=== PATIENT | male | born 1970 | race Caucasian/White ===

== ENCOUNTER 2017-03-19 05:39 | Day surgery (SDC) | payer OTHER ==
[~2017-03-19] VITALS: Ht 190.5 cm; Wt 81.4 kg
[~2017-03-19 05:39] MED LIST: BUPR75 PO; HYDACE5325 PO; LIDO5TP TOP; NAPR500 PO; Naprosyn500 MG PO; Norco 5-325 Ta1 EACH PO; OXYACE5T PO; RXHYD5325 PO; TRAZ50 PO
[2017-03-19] MEDS ORDERED: NITR.4SL SL (06:50)
[2017-03-19 07:18] LABS: BASOPHILS ABSOLUTE AUTO 0.12 K/mm3 (0.00-0.23); BASOPHILS PERCENT AUTO 2 % (0-2); EOSINOPHILS ABSOLUTE AUTO 0.26 K/mm3 (0.00-0.68); EOSINOPHILS PERCENT AUTO 3 % (0-6); Hematocrit 49.3 % (37.0-53.0); Hemoglobin 15.8 g/dL (13.5-17.5); IMMATURE GRAN ABSOLUTE AUTO 0.03 K/mm3 (0.00-0.10); IMMATURE GRAN PERCENT AUTO 0 % (0-1); LYMPHOCYTES ABSOLUTE AUTO 3.36 K/mm3 (0.84-5.20); LYMPHOCYTES PERCENT AUTO 41 % (21-46); MONOCYTES ABSOLUTE AUTO 0.69 K/mm3 (0.16-1.47); MONOCYTES PERCENT AUTO 8 % (4-13); Mean Corpuscular HGB 24.9 pg (26.0-34.0); Mean Corpuscular Volume 78 fL (80-100); Mean Platelet Volume 10.1 fL (9.1-12.4); NEUTROPHILS ABSOLUTE AUTO 3.77 K/mm3 (1.96-9.15); NEUTROPHILS PERCENT AUTO 46 % (41-73); Platelet Count 279 K/mm3 (150-400); RDW Coefficient Variation 13.7 % (11.7-14.2); RDW Standard Deviation 37.9 fL (35.1-46.3); Red Blood Cell Count 6.35 M/mm3 (4.30-5.90); White Blood Cell Count 8.23 K/mm3 (4.00-11.30)
[2017-03-19 08:03] LABS: Anion Gap 8 mmol/L (6-16); Blood Urea Nitrogen 10 mg/dL (8-24); Bun/Creatinine Ratio 10.3 (12.0-20.0); CO2, Blood 28 mmol/L (21-32); Chloride, Blood 104 mmol/L (98-108); Creatinine, Blood 0.97 mg/dL (0.60-1.20); Glomerular Filtration Rate >60 (60-); Glucose, Blood 86 mg/dL (70-99); Potassium, Blood 3.7 mmol/L (3.5-5.5); Sodium, Blood 140 mmol/L (136-145)
[2017-03-20] MEDS ORDERED: Aspir 8181 MG PO (09:08)
[2017-03-20] MEDS ORDERED: TICA90TA PO (09:09)
[2017-03-20] MEDS ORDERED: SIMV40 PO (09:09)
[2017-03-20] MEDS ORDERED: Pepcid 20 mg Ta20 MG PO (09:09)
[2018-01-17] MEDS ORDERED: Neurontin 100100 MG PO (14:31)
[2018-01-17] MEDS ORDERED: Naprosyn500 MG PO (14:31)
== END 2017-03-20 10:53 | disposition home or self-care (01) ==
LOC: MHTC 05:39 → ICUW 09:52 → ICUE 11:19 → ENTRNSPT 11:37 → ICUW 11:38 → MHTC 03-20 10:53
PROVIDERS: Internal Medicine Cardiovascular Disease
PROC: B211YZZ Fluoroscopy of Multiple Coronary Arteries using Other Contrast (ICD-10-PCS; principal; 2017-03-19)
PROC: B241ZZ3 Ultrasonography of Multiple Coronary Arteries, Intravascular (ICD-10-PCS; principal; 2017-03-19)
PROC: 02703EZ Dilation of Coronary Artery, One Artery with Two Intraluminal Devices, Percutaneous Approach (ICD-10-PCS; principal; 2017-03-19)
DX: I25.118 Atherosclerotic heart disease of native coronary artery with other forms of angina pectoris (principal); Z82.49 Family history of ischemic heart disease and other diseases of the circulatory system; Z87.891 Personal history of nicotine dependence
CPT/HCPCS: 36415; 80048; 82565; 85025; 85347; 92920; 92928; 92978; 93454; 99152; 99153; C1725; C1753; C1769; C1876; C1894; J0153; J0461; J1644; J2250; J3010; J7030; Q9967

== ENCOUNTER 2017-03-20 18:14 | Emergency (ER) | payer OTHER ==
[~2017-03-20 18:14] MED LIST changes: +Aspir 8181 MG PO; +NITR.4SL SL; +Pepcid 20 mg Ta20 MG PO; +SIMV40 PO; +TICA90TA PO
[2018-01-17] MEDS ORDERED: Naprosyn500 MG PO (14:31)
[2018-01-17] MEDS ORDERED: Neurontin 100100 MG PO (14:31)
== END 2017-03-20 20:00 | disposition left against medical advice (07) ==
LOC: ER 18:14
DX: Z53.21 Procedure and treatment not carried out due to patient leaving prior to being seen by health care provider (principal)

== ENCOUNTER → 2017-04-25 | Outpatient (CLI) | payer OTHER ==
[~2017-04-25] MED LIST changes: +Neurontin 100100 MG PO
[2017-04-25 10:39] LABS: BASOPHILS ABSOLUTE AUTO 0.12 K/mm3 (0.00-0.23); BASOPHILS PERCENT AUTO 1 % (0-2); EOSINOPHILS ABSOLUTE AUTO 0.35 K/mm3 (0.00-0.68); EOSINOPHILS PERCENT AUTO 4 % (0-6); Hematocrit 46.5 % (37.0-53.0); Hemoglobin 15.3 g/dL (13.5-17.5); IMMATURE GRAN ABSOLUTE AUTO 0.04 K/mm3 (0.00-0.10); IMMATURE GRAN PERCENT AUTO 0 % (0-1); LYMPHOCYTES ABSOLUTE AUTO 3.52 K/mm3 (0.84-5.20); LYMPHOCYTES PERCENT AUTO 38 % (21-46); MONOCYTES ABSOLUTE AUTO 0.62 K/mm3 (0.16-1.47); MONOCYTES PERCENT AUTO 7 % (4-13); Mean Corpuscular HGB 25.5 pg (26.0-34.0); Mean Corpuscular HGB Conc 32.9 g/dL (31.5-36.5); Mean Corpuscular Volume 78 fL (80-100); Mean Platelet Volume 10.1 fL (9.1-12.4); NEUTROPHILS PERCENT AUTO 50 % (41-73); Platelet Count 290 K/mm3 (150-400); RDW Coefficient Variation 14.2 % (11.7-14.2); RDW Standard Deviation 39.5 fL (35.1-46.3); Red Blood Cell Count 5.99 M/mm3 (4.30-5.90); White Blood Cell Count 9.25 K/mm3 (4.00-11.30)
[2017-04-25 10:55] LABS: Alanine Aminotransfer (ALT/SGP 44 U/L (12-78); Albumin, Blood 3.9 g/dL (3.4-5.0); Albumin/Globulin Ratio 1.3 (0.8-1.8); Alk Phos 89 U/L (40-126); Anion Gap 9 mmol/L (6-16); Aspartate Aminotrans (AST/SGOT 20 U/L (12-37); Bilirubin, Total 0.4 mg/dL (0.1-1.0); Blood Urea Nitrogen 7 mg/dL (8-24); CO2, Blood 26 mmol/L (21-32); Calcium, Blood 8.9 mg/dL (8.5-10.1); Chloride, Blood 106 mmol/L (98-108); Creatinine, Blood 1.16 mg/dL (0.60-1.20); Glomerular Filtration Rate >60 (60-); Glucose, Blood 162 mg/dL (70-99); Potassium, Blood 3.6 mmol/L (3.5-5.5); Sodium, Blood 141 mmol/L (136-145); Total Protein, Blood 6.9 g/dL (6.4-8.2)
[2017-04-25 10:56] LABS: Troponin I <0.017 ng/mL (0.000-0.040)
== END | disposition home or self-care (01) ==
LOC: LAB EV 10:35
PROVIDERS: Physician Assistant Surgical
DX: R07.9 Chest pain, unspecified (principal)
CPT/HCPCS: 80053; 84484; 85025

== ENCOUNTER → 2018-12-01 | Outpatient (CLI) | payer OTHER | END | disposition home or self-care (01) | LOC: LAB 17:55 → LAB SHORT 17:55 | DX: I25.10 Atherosclerotic heart disease of native coronary artery without angina pectoris (principal); M79.602 Pain in left arm; Z95.5 Presence of coronary angioplasty implant and graft | CPT/HCPCS: 84484 ==

== ENCOUNTER 2018-12-10 08:41 | Emergency (ER) | payer OTHER | END 2018-12-10 09:24 | disposition left against medical advice (07) | LOC: ER 08:41 | DX: Z53.21 Procedure and treatment not carried out due to patient leaving prior to being seen by health care provider (principal) ==

== ENCOUNTER 2018-12-18 23:22 | Inpatient (IN) | payer OTHER ==
[~2018-12-18] VITALS: Ht 190.5 cm; Wt 82.0 kg
[2018-12-18 23:42] LABS: BASOPHILS ABSOLUTE AUTO 0.09 K/mm3 (0.00-0.23); BASOPHILS PERCENT AUTO 1 % (0-2); EOSINOPHILS ABSOLUTE AUTO 0.21 K/mm3 (0.00-0.68); EOSINOPHILS PERCENT AUTO 1 % (0-6); Hematocrit 46.5 % (37.0-53.0); IMMATURE GRAN ABSOLUTE AUTO 0.27 K/mm3 (0.00-0.10); IMMATURE GRAN PERCENT AUTO 2 % (0-1); LYMPHOCYTES ABSOLUTE AUTO 4.21 K/mm3 (0.84-5.20); LYMPHOCYTES PERCENT AUTO 24 % (21-46); MONOCYTES ABSOLUTE AUTO 1.19 K/mm3 (0.16-1.47); MONOCYTES PERCENT AUTO 7 % (4-13); Mean Corpuscular HGB 26.4 pg (26.0-34.0); Mean Corpuscular HGB Conc 32.3 g/dL (31.5-36.5); Mean Corpuscular Volume 82 fL (80-100); Mean Platelet Volume 9.4 fL (9.1-12.4); NEUTROPHILS ABSOLUTE AUTO 11.64 K/mm3 (1.96-9.15); NEUTROPHILS PERCENT AUTO 66 % (41-73); Platelet Count 237 K/mm3 (150-400); RDW Coefficient Variation 15.2 % (11.7-14.2); Red Blood Cell Count 5.68 M/mm3 (4.30-5.90); White Blood Cell Count 17.61 K/mm3 (4.00-11.30)
[2018-12-19 00:08] LABS: Alanine Aminotransfer (ALT/SGP 38 U/L (12-78); Albumin, Blood 3.3 g/dL (3.4-5.0); Albumin/Globulin Ratio 1.1 (0.8-1.8); Alk Phos 84 U/L (50-136); Anion Gap 6 mmol/L (6-16); Aspartate Aminotrans (AST/SGOT 17 U/L (12-37); Bilirubin, Total 0.2 mg/dL (0.1-1.0); Blood Urea Nitrogen 11 mg/dL (8-24); Bun/Creatinine Ratio 10.4 (12.0-20.0); CO2, Blood 26 mmol/L (21-32); Calcium, Blood 8.4 mg/dL (8.5-10.1); Chloride, Blood 112 mmol/L (98-108); Creatinine, Blood 1.06 mg/dL (0.60-1.20); Glomerular Filtration Rate >60 (60-); Glucose, Blood 99 mg/dL (70-99); Potassium, Blood 3.4 mmol/L (3.5-5.5); Sodium, Blood 144 mmol/L (136-145); Total Protein, Blood 6.3 g/dL (6.4-8.2); Troponin I <0.015 ng/mL (0.000-0.040)
[2018-12-19] MEDS ORDERED: DUL (02:47)
[2018-12-19] MEDS ORDERED: [UNRECOGNIZED DRUG - OTHER] (02:48)
[2018-12-19] MEDS ORDERED: ALBU NEB (02:49)
--- NOTE | 2018-12-19 05:38 | NUR ---
SHIFT SUMMARY: PT ARRIVED ON UNIT VIA W/C. TRANSFERRED TO BED INDEPENDENTLY. SKIN COLOR PALE. NOT DIAPHORETIC. NO SOB. REPORTS LEFT UPPER CHEST PAIN STILL PRESENT 04/03. THIS IS DOWN FROM "12" UPON ARRIVAL TO HOSPITAL. LEFT ARM N/T CONSISTENT WITH N/T AND WEAKNESS PT HAS EXPERIENCED FOR SEVERAL MONTHS. 02 SAT 96% ON RA. VSS. A/0X4. TELE ON- BRADYCARDIC SINUS RHYTHM. HR 59. NO COMPLAINTS AT THIS TIME.
[2018-12-19 07:38] LABS: Hematocrit 44.5 % (37.0-53.0); Hemoglobin 14.3 g/dL (13.5-17.5); Mean Corpuscular HGB 26.1 pg (26.0-34.0); Mean Corpuscular HGB Conc 32.1 g/dL (31.5-36.5); Mean Corpuscular Volume 81 fL (80-100); Mean Platelet Volume 9.5 fL (9.1-12.4); Platelet Count 215 K/mm3 (150-400); RDW Coefficient Variation 15.3 % (11.7-14.2); RDW Standard Deviation 44.6 fL (35.1-46.3); Red Blood Cell Count 5.48 M/mm3 (4.30-5.90); White Blood Cell Count 14.87 K/mm3 (4.00-11.30)
[2018-12-19 07:58] LABS: Troponin I 0.137 ng/mL (0.000-0.040)
[2018-12-19 07:59] LABS: Anion Gap 5 mmol/L (6-16); Blood Urea Nitrogen 12 mg/dL (8-24); Bun/Creatinine Ratio 13.1 (12.0-20.0); CO2, Blood 26 mmol/L (21-32); Calcium, Blood 8.4 mg/dL (8.5-10.1); Chloride, Blood 114 mmol/L (98-108); Creatinine, Blood 0.92 mg/dL (0.60-1.20); Glomerular Filtration Rate >60 (60-); Glucose, Blood 97 mg/dL (70-99); Potassium, Blood 3.7 mmol/L (3.5-5.5); Sodium, Blood 145 mmol/L (136-145)
[2018-12-19 08:00] LABS: BASOPHILS ABSOLUTE MAN 0.14 K/mm3 (0.00-0.23); BASOPHILS PERCENT MAN 1 % (0-2); EOSINOPHILS PERCENT MAN 0 % (0-6); LYMPHOCYTES PERCENT MAN 31 % (21-46); MONOCYTES ABSOLUTE MAN 0.59 K/mm3 (0.16-1.47); MONOCYTES PERCENT MAN 4 % (4-13); NEUTROPHILS ABSOLUTE MAN 9.51 K/mm3 (1.96-9.15); SEG NEUTROPHILS PERCENT MAN 64 % (41-73); TOTAL CELLS COUNTED 100
--- NOTE | 2018-12-19 08:26 | NUR ---
ECHOCARDIOGRAM COMPLETED
--- NOTE | 2018-12-19 10:43 | NUR ---
RADHA GREENFIELD NOTIFIED TROP ON ADMIT WAS 0.015 AND NOW 0.137. NO Ilan MEZA TO SEE PATIENT.
--- NOTE | 2018-12-19 12:00 | NUR ---
PER TO SUPERVISOR QUALITY CONTROL FIRST THEN POSSIBLE CT PE AFTER. NPO AT THIS TIME.
--- NOTE | 2018-12-19 12:30 | NUR ---
ALERT. ORIENTED. PAIN TO LEFT C.W. 1(1-10) SINCE ADMIT. NOT DIAPHORETIC. INTERMITTENT LT ARM N/T W/HX OF FOR MONTHS. AND HAVE SEEN. CT FOR P.E. ON HOLD. PATIENT TO POLICY CANCELLATION CLERK VIA W/C. ON OXYGEN. UNLABORED RESPIRATIONS. WILL GIVE REPORT TO PCU.
--- NOTE | 2018-12-19 13:15 | NUR ---
ATTEMPT TO GIVE REPORT TO PCU. TO WAIT TILL PATIENT GETS THERE FROM HOME HEALTH CLINICIAN.
[2018-12-19 13:51] LABS: International Normalized Ratio 1.04
--- NOTE | 2018-12-19 15:12 | NUR ---
S/P ANGIOGRAM BED SIDE REPORT RECEIVED FROM JENNYFER HERNANDEZ.PT AWAKE AND ALERT. VERY CROSS WITH STAFF. JENNYFER AND THIS NURSE ATTEMPTED TO TALK WITH HIM ABOUT BED REST AND GROIN SITE MANAGEMENT. HE DIDN'T WANT TO HEAR IT BECAUSE DR SUDHA PETTY KATERINA LET HIM UP TO WALK RIGHT AFTER. DR TILLMAN WROTE FOR HOB AT 30 DEGREES. CALLED MEDICAL FLOOR FOR HIS LUNCH TO BE BROUGHT DOWN. PT STATED TO ALEX HERNANDEZ THAT HE WAS GOING TO WALK OUT. DR TILLMAN MADE AWARE OF PT STATMENTS. CONTINUE POT.
--- NOTE | 2018-12-19 15:13 | NUR ---
REPORT TO ELAINA HERNANDEZ PCU. ANSWER ALL QUESTIONS. LUNCH TRAY TAKEN TO PCU BY WET SUIT GLUER.
--- NOTE | 2018-12-19 18:55 | NUR ---
PT ARRIVED TO PCU 13 A TRANSFER FROM [facility] VIA [facility] [place]. HAS R GROIN ACCESS SITE, GOT 1 STENT. PT ARRIVED VERY IRRITABLE, GOT UPSET WITH PRIMARY RN FOR HOLDING PRESSURE ON GROIN SITE WHILE PT ATTEMPTED TO MOVE SELF AROUND IN BED AND TOLD HIM TO LAY DOWN. PT STATED HE DID NOT HER BACKIN HIS ROOM. I ASSUMED CARE OF PT. PT WAS INITIALY VERY DIFFICULT TO GET TO COMPLY WITH POST PROCEDURE INSTRUCTION. DR PATTEN CAME IN TO SEE PT, WAS VERY DIRECT WITH PT ABOUT NEED TO COMPLY, PT MADE STATEMENTS THAT HE WAS GOING TO LEAVE. PT EVENTUALLY SETTLED DOWN, STATES HE FELT BETTER ESPECIALLY AFTER EATING. GROIN SITE CONTINUES TO OOZE. FEMSTOP PLACED AT 1530, SITE STILL CONT TO OOZE THIS JESSY. PT WAS LOADED WITH BRILINTA, HEPARIN AND PLAVIX. PT CONTINUES TO LIFT HEAD AND SHIFT BODY IN BED. HAVE REPEATEDLY REMINDED PT SINCE ASSUMING CARE THE IMPORTANCE OF FOLLOWING POST PROCEDURE INSTRUCTIONS. VSS. SITE SOMEWHAT MORE TENDER PROXIMAL OF INCISION AREA, SOME VERY SLIGHT DISCOLORATION IN SAME AREA, SOFT. CONT TO MONITOR AND REPORT OFF TO PM RN
--- NOTE | 2018-12-19 19:39 | NUR ---
REQUESTED ASSIST FROM [employer] P[employer]ING SUPERINTENDENT WITH FEMSTOP, WAS REPOSITIONED. JUST WENT BACK TO CHECK SITE, MORE BLEEDING NOTED. CALL PLACED TO DR. SINGLETON. SHE STATES TO TRY JASE UNDER FEMSTOP AND IF THAT DOES NOT WORK THEN ONLY OTHER OPTION IS TO HOLD MANUAL PRESSURE TILL BLEEDING STOPS. REPORT GIVEN TO NIGHT RN'S
--- NOTE | 2018-12-19 19:56 | NUR ---
PROVIDER CONTACTED PT REPORTING SIGNIFICANT DISCOMFORT RELATED TO FEMSTOP BEING PLACED TO GROIN SITE WITH NO RELIEF FROM TYLENOL. PROVIDER, DIAZ, CONTACTED AND ORDERS RECEIVED FOR ONE TIME DOSE OF FENTANYL. WILL INPUT ORDERS AND ADMINISTER.
--- NOTE | 2018-12-19 20:30 | NUR ---
ASSUMED CARE AND GROIN SITE PT CARE ASSUMED AT APPROXIMATELY 1930. UPON ASSUMPTION OF CARE, PT VERY IRRITABLE WITH STAFF. PT PRIMARY CONCERN IS INABILITY TO URINATE AND WANTING TO STAND TO DO SO. PT EDUCATED EXTENSIVELY ON GROIN SITE CARE AND CURRENT STATUS. DISCUSSED POSSIBILITY OF URINARY CATHETER WHILE SITE RECOVERY IN PROCESS. PT DISAGREEABLE AT FIRST, BUT WILLING TO UTILIZE CATHETER WITH USE OF UROJET FOR INSERTION. PT CONTINUES TO BE IRRITABLE POST CATHETER PLACEMENT, BUT VISIBLY LESS TENSE WITH BLADDER DRAINING. PT ALSO VISIBLY MORE COMFORTABLE AFTER ADMINISTRATION OF PAIN MEDICATION. PT EXPRESSING FRUSTRATION WITH CURRENT STATUS AND INABILITY TO MOVE/STAND UP. EDUCATION REITERATED FOR GROIN SITE AND PATIENT SAFETY. R GROIN SITE IS CONTINUOUSLY OOZING BLOOD. NO PALPABLE HEMATOMA NOTED, BUT SOME DIFFUSE BLEEDING NOTED UNDER SKIN. BRUISING NOTED DIRECTLY IN GROIN CREVICE. PRESSURE HELD ABOVE GROIN SITE UNTIL OCCLUSION OF FEMORAL ARTERY NOTED WITH USE OF PULSE OXIMETRY. PT REPORTING SOME DISCOMFORT WITH PRESSURE, BUT REPORTS THAT IT IS BEARABLE. PT REPORTING THAT THE DISCOMFORT IS MOSTLY COMING FROM CATHETER PLACEMENT. WILL CONTINUE TO HOLD PRESSURE AND UTILIZE FEMSTOP UNTIL HEMOSTASIS OCCURS.
--- NOTE | 2018-12-19 23:00 | NUR ---
GROIN SITE UPDATE GROIN SITE CONTINUES TO OOZE CONTINUOUSLY WHEN PRESSURE RELEASED FROM SITE. NOT NOTED CHANGE TO AREA SURROUNDING INCISION SITE. GROIN REMAINS SOFT WITH NO NOTED HEMATOMA OR CHANGE TO BRUISING OF GROIN AREA. PT CONTINUES TO REPORT DISCOMFORT TO LEG WHEN PRESSURE APPLIED EITHER MANUALLY OR WITH USE OF FEMSTOP. PEDAL PULSE REMAINS PALPABLE, BUT DIMINISHED WHEN PRESSURE BEING HELD TO GROIN SITE, CAPILLARY REFILL <3 SECONDS EVEN WITH PRESSURE APPLIED- PT REPORTS THAT "LEG FEELS NUMB", PT EDUCATED THAT THIS CAN BE ANTICIPATED AT THIS TIME, BUT THAT EXTREMITY IS STILL PERFUSING DESPITE NUMBNESS TO EXTREMITY. PT IS CURRENTLY VERY PLEASANT WITH STAFF AND COOPERATIVE WITH CARE AT THIS TIME. FOLLOWING SUGGESTED COURSE OF TREATMENT.
--- NOTE | 2018-12-20 02:45 | NUR ---
JASE AND FEMSTOP GROIN SITE CONTINUES TO BLEED. ICU CHARGE, WILLIAM, TO ROOM TO ASSESS SITE. PRESSURE HELD FOR APPROXIMATELY 15 MINUTES, BLEEDING SLOWED TO A STEADY OOZE. JASE DRESSING PLACED WITH 4X4 GAUZE AND FEMSTOP REPLACED OVER SITE. NO IMMEDIATE BLEEDING SEEN THROUGH DRESSING. PT DENIES PAIN ON FEMSTOP PLACEMENT AT THIS TIME WILL CONTINUE TO MONITOR.
--- NOTE | 2018-12-20 06:01 | NUR ---
PROVIDER CONTACTED PT CONTINUES TO HAVE BLEEDING FROM GROIN SITE, DESPITE PLACEMENT ON JASE DRESSING, MANUAL PRESSURE MULTIPLE TIMES THROUGHOUT THE NIGHT, WELL USE OF FEMSTOP. DR EVANGELISTA CONTACTED AND CASE DISCUSSED. DISCUSSED AMOUNT OF ANTIPLATELET THERAPY RECEIVED THROUGHOUT DAY PRIOR TO CATH PROCEDURE AND DISCUSSED POSIBILITY OF HOLDING OR POSTPONING AM DOSE OF PLAVIX. ALSO DISCUSSED POTENTIAL ALTERNATE INTERVENTIONS FOR HEMASTASIS. PROVIDER STATES THAT HE WILL DISCUSS CASE WITH INTERVENTIONALIST AND HAVE THEM ASSESS PATIENT THIS AM. VERBAL ORDERS TO GIVE AM PLAVIX AND ASPIRIN. WILL CONTINUE TO MONITOR.
--- NOTE | 2018-12-20 06:32 | NUR ---
SHIFT SUMMARY PT HAS REMAINED AOX4 THROUGHOUT SHIFT. VSS. PT HAS BECOME MUCH LESS IRRITABLE THROUGHOUT THE NIGHT AND HAS BEEN VERY COOPERATIVE WITH CARE AND STAFF SUGGESTIONS SINCE APPROXIMATELY 2029 LAST NIGHT. HE IS MUCH MORE UNDERSTANDING OF THE RATIONALLE BEHIND CARE BEING PROVIDED AND SUGGESTIONS OF STAFF MEMBERS. PT MEDICATED MULTIPLE TIMES FOR PAIN TO GROIN SITE, BACK, AND CATHETER SITE THAT HAS DECREASED WITH ORDERED MEDICATION. GROIN SITE CONTINUES TO OOZE DESPITE JASE DRESSING, HOLDING MANUAL PRESSURE AND UTILIZING FEMSTOP DEVICE. GROIN SITE REMAINS SOFT WITH NO NOTED HEMATOMA. BRUISING REMAINS UNCHANGED IN GROIN AREA, PATIENT DOES REPORT SOME DISCOMFORT ON PALPATION AROUND SITE. PT IS CURRENTLY RESTING IN BED, LYING FLAT WITH PILLOWS UNDER L SIDE AND BED IN [place] POSITION, REPORTS INCREASED COMFORT IN THIS POSITION WITH FEMSTOP IN PLACE. CATHETER REMAINS PATENT AND DRAINING TO GRAVITY - PT CURRENTLY AGREEABLE TO HAVING CATHETER IN PLACE, BUT IS EAGER TO GET IT REMOVED WHEN BLEEDING STOPS. DR EVANGELISTA IN TO SEE PATIENT THIS AM AND EXPLAINS NEED FOR BEDREST ORDER AT THIS TIME. WILL CONTINUE TO MONITOR AND REPORT TO ONCOMING SHIFT RN. BED IN LOW POSITION, CALL LIGHT IN REACH.
--- NOTE | 2018-12-20 07:29 | NUR ---
a+o, fem site still seeping, pressure belt still in place, pressure held mannually for > 20 min multiple times during shift, repositioned for back pain relife, saline locked, medicated for pain, cath placed to enable him nto to need to disturb fem sit, will continue to monitor and trat until bsr shared with staff and pt
--- NOTE | 2018-12-20 08:47 | NUR ---
pt laying in bed with fem stop in place, has a bit of oozing this am, new dressing in place for absorbing leakage. pt awake a/ox3, cooperative with care, follows commands well, reports pain in his back and the cath site rates at 6/10 and requested pain meds, fentanyl was given with some relief. lungs are clear t/o, resp even and unlabored, no cough noted, hrr, tele in place running sr per monitor, see strip, no edema noted, ppp +1, cap refill <3sec, vs stable, afebrile, iv site is clear and patent, btx4, abd flat soft nontender, fragoso cath draining clear yellow urine, skin c/w/d, except cath site that is oozing, azalia aldrich, call light in reach.
--- NOTE | 2018-12-20 12:21 | NUR ---
financial auditor came in and injected epi around cath site. weight is in place, he has had no further signs of bleeding since that time, she said she will come back and repeat injections if needed. call light in reach, he is hoping to be able to sit up soon. call light in reach.
--- NOTE | 2018-12-20 18:31 | NUR ---
after epi injection there has been no further bleeding. got pt up this evening without incident, he is much happier to move around. no further changes this shift. call light in reach.
--- NOTE | 2018-12-21 07:18 | NUR ---
attitude much improved, waiting for orders to go home that were promised by a dr who is not his pcp, saline locked, rm air, asking for a non cardiac breakfast, no bleeding noted at groin site, bsr shared with pt and day staff
--- NOTE | 2018-12-21 07:43 | NUR ---
NURSING PCU DAYSHIFT: Assumed care of pt approx 0700. A/O, pleasant, cooperative w/care. Ambulates independently and w/o difficulty. Denies any pain/discomfort at rest. R groin site r/t recent angiogram, tegaderm in place w/sterile gauze under dressing, no bleed or hematoma noted, tenderness w/palp. Tele in place, NSR, no c/o CP/pressure, SBP 140's prior to a.m. meds, no noted edema. Respiratory status stable, denies dyspnea, no noted cough, O2 sat upper 90's on RA. GI/ wnl. PIV x1, s/l. Seen by cardiology this a.m., cleared for discharge home, PMD notified. Pt denies any current needs or questions regarding plan of care, call light in reach, cont to monitor for changes.
--- NOTE | 2018-12-21 14:12 | NUR ---
Patient is sitting up in bed and alert. Patient immediately tells me his complaints about the hospital. I tell him I will connect him with the patient advocate. I step out of patient's room and go over to patient roxie Torre's office and tell her that this patient would like to see her. She states that she will make that happen. I go back to patient and confirm that I talked with Yelitza and that she will be stopping by soon.
--- NOTE | 2018-12-21 17:03 | NUR ---
NURSING PCU DAYSHIFT SUMMARY: No significant changes noted t/o the shift. R groin site remains stable w/no bleed or hematoma noted. C/O 5-6/10 burning type pain at angio insertion site, treating w/meds as ordered. SBP improved, respiratory status remains stable w/O2 sat upper 90's on RA. PE study results discussed w/PMD, new d/o received. Hep gtt initiated as per pharmacy dosing. Pt denies any questions regarding current plan of care, possible discharge home tomorrow. Rpt provided to peer RN, pt will continue to be monitored until rpt is given to NOC RN.
--- NOTE | 2018-12-21 20:30 | NUR ---
CARE ASSUMPTION / SKIN REACTION PT A&O X4. VSS. R GROIN SITE W/ SCATTERED RASH BENEATH JASE DRESSING W/ 3 SKIN BLISTERS TO AREA THAT PT REPORTS NEW. PT REPORTS SKIN TO BE "BURNING." JASE DRESSING REMOVED W/ GAUZE AND TAPE DRESSING APPLIED. OTHERWISE, SITE W/ NO BLEEDING, & NO HEMATOMA. HEPARIN GTT INFUSING PER ORDERS. WILL CONTINUE TO MONITOR AND PROVIDE CARE.
--- NOTE | 2018-12-21 22:50 | NUR ---
R GROIN PAIN / CALL TO [employer] CALL TO [employer] VICTOR HUGO @ 5304 TO REPORT PT'S R GROIN SITE SKIN REACTION AND PT'S C/O 7/10 PAIN W/ IV FENTANYL DC'D TODAY, & PT REPORT OF TYLENOL BEING INEFFECTIVE IN MANAGING R GROIN PAIN. [employer] W/ NEW ORDERS FOR PO OXYCODONE, SEE EMAR, AND INSTRUCTIONS TO APPLY ICE TO AREA. WILL CONTINUE TO MONITOR AND PROVIDE CARE.
--- NOTE | 2018-12-22 04:53 | NUR ---
SHIFT SUMMARY PT A&O X4. VSS. R GROIN SITE W/OUT BLEED OR HEMATOMA, BUT NOTED TO HAVE SKIN REDNESS/IRRITATION AT SITE, SEE PREVIOUS MENTIONED NOTE AND PHOTO IN CHART. HEPARIN GTT INFUSING PER ORDERS. PT EAGER FOR DISCHARGE HOME. WILL CONTINUE TO MONITOR AND PROVIDE CARE UNTIL REPORT OFF TO DAY SHIFT RN.
--- NOTE | 2018-12-22 09:56 | NUR ---
SEMAPHORE OPERATOR NOTE REPORT REC'D FROM RAVEN HERNANDEZ. PT AWAKE, A&O, LYING IN BED WITH TV ON AND USING LAPTOP. GROIN DRSG REMOVED, NO CHANGES OR COMPLICATIONS. PT REPORTS "08/31" PAIN, PAIN MED GIVEN WITH AM MEDS. VSS. ASKING FOR UPDATE RE PLAN VS DISCHARGE. HEP STILL INFUSING WELL IN PIV LFA. ASSESSMENT NOTED. CALL LIGHT IN REACH.
[2018-12-22] MEDS ORDERED: Lipitor80 MG PO (11:29)
[2018-12-22] MEDS ORDERED: CLOP75 PO (11:29)
[2018-12-22] MEDS ORDERED: Metoprolol Succ25 MG PO (11:30)
[2018-12-22] MEDS ORDERED: ELIQUIS5 MG PO (11:31)
--- NOTE | 2018-12-22 12:24 | NUR ---
DISCHARGE NURSING NOTE PT INDEP IN ROOM BUT WITH MINIMAL MOVEMENT. UP TO SHOWER. NO NEW COMPLAINTS. NO SIGNIFICANT CHANGES. PT ANXIOUS TO GO HOME. DR GARCIA IN TO SEE PT. NEW DISCHARGE ORDERS. HEP GTT STOPPED. IV DC'D INTACT BY SN. PT DRESSED. DC INSTRUCTIONS PROVIDED WITH GOOD STATED UNDERSTANDING OF NEW MEDICATION INSTRUCTIONS AND ACTIVITY PRECAUTIONS R/T BLOOD THINNERS AND NEW BP MED. PT STATES HE WILL ASK FOR NEIGHBOR ASSIST WITH BP. STATES THAT NEIGHBOR IS A HOME CARE PROVIDER. RIDE OBTAINED AND PT ESCORTED TO ENTRANCE BY SLEEP MEDICINE PHYSICIAN, AMBULATORY WITH STEADY GAIT.
== END 2018-12-22 12:10 | disposition home or self-care (01) | DRG 250 ==
LOC: ER 23:22 → MEDS 23:23 → PCU 12-19 13:27
PROVIDERS: Emergency Medicine; Internal Medicine Cardiovascular Disease; ADMIT Internal Medicine
PROC: B2111ZZ Fluoroscopy of Multiple Coronary Arteries using Low Osmolar Contrast (ICD-10-PCS; principal; 2018-12-19)
PROC: 02703ZZ Dilation of Coronary Artery, One Artery, Percutaneous Approach (ICD-10-PCS; 2018-12-19)
PROC: 4A023N7 Measurement of Cardiac Sampling and Pressure, Left Heart, Percutaneous Approach (ICD-10-PCS; 2018-12-19)
PROC: B240ZZ3 Ultrasonography of Single Coronary Artery, Intravascular (ICD-10-PCS; 2018-12-19)
DX: T82.855A Stenosis of coronary artery stent, initial encounter (principal); I26.99 Other pulmonary embolism without acute cor pulmonale; I25.110 Atherosclerotic heart disease of native coronary artery with unstable angina pectoris; I97.610 Postprocedural hemorrhage of a circulatory system organ or structure following a cardiac catheterization; Z95.5 Presence of coronary angioplasty implant and graft; Z79.82 Long term (current) use of aspirin; F17.210 Nicotine dependence, cigarettes, uncomplicated; Z90.2 Acquired absence of lung [part of]; Z92.21 Personal history of antineoplastic chemotherapy; J43.9 Emphysema, unspecified; Z85.118 Personal history of other malignant neoplasm of bronchus and lung; E87.6 Hypokalemia
CPT/HCPCS: 36415; 71046; 71260; 80048; 80053; 84484; 85025; 85347; 85379; 85610; 85730; 86850; 86900; 86901; 92920; 92978; 93005; 93010; 93306; 93458; 96360; 99152; 99153; 99285-25; A9270; C1725; C1753; C1760; C1769; C1887; C1894; G0378; J1644; J1650; J2250; J2704; J3010; J7030; Q9967

== ENCOUNTER 2019-09-06 03:35 | Inpatient (IN) | payer OTHER ==
[~2019-09-06] VITALS: Ht 190.5 cm; Wt 78.0 kg
[~2019-09-06 03:35] MED LIST changes: +ALBU NEB; +CLOP75 PO; +DUL; +ELIQUIS5 MG PO; +Lipitor80 MG PO; +Metoprolol Succ25 MG PO; +[UNRECOGNIZED DRUG - OTHER]
[2019-09-06 04:00] LABS: Calcium, Ionized (POC) 1.02 mmol/L (1.10-1.46); Chloride (POC) 104 mmol/L (98-108); Creatinine (POC) 0.9 mg/dL (0.8-1.3); Glucose (ISTAT POC) 91 mg/dL (70-99); Hemoglobin (POC) 17.7 g/dL (13.5-17.5); Potassium (POC) 3.5 mmol/L (3.5-5.5); Sodium (POC) 141 mmol/L (135-148); Total CO2 (POC) 23 mmol/L (21-32)
[2019-09-06 04:03] LABS: BASOPHILS ABSOLUTE AUTO 0.16 K/mm3 (0.00-0.23); BASOPHILS PERCENT AUTO 1 % (0-2); EOSINOPHILS ABSOLUTE AUTO 0.23 K/mm3 (0.00-0.68); EOSINOPHILS PERCENT AUTO 2 % (0-6); Hematocrit 54.8 % (37.0-53.0); Hemoglobin 17.9 g/dL (13.5-17.5); IMMATURE GRAN ABSOLUTE AUTO 0.14 K/mm3 (0.00-0.10); IMMATURE GRAN PERCENT AUTO 1 % (0-1); LYMPHOCYTES ABSOLUTE AUTO 5.46 K/mm3 (0.84-5.20); LYMPHOCYTES PERCENT AUTO 36 % (21-46); MONOCYTES ABSOLUTE AUTO 1.25 K/mm3 (0.16-1.47); MONOCYTES PERCENT AUTO 8 % (4-13); Mean Corpuscular HGB 26.2 pg (26.0-34.0); Mean Corpuscular HGB Conc 32.7 g/dL (31.5-36.5); Mean Corpuscular Volume 80 fL (80-100); NEUTROPHILS PERCENT AUTO 53 % (41-73); RDW Coefficient Variation 17.2 % (11.7-14.2); RDW Standard Deviation 45.1 fL (35.1-46.3); Red Blood Cell Count 6.84 M/mm3 (4.30-5.90); White Blood Cell Count 15.24 K/mm3 (4.00-11.30)
[2019-09-06 04:04] LABS: Mean Platelet Volume 9.8 fL (9.1-12.4); Platelet Count 189 K/mm3 (150-400)
[2019-09-06 04:15] LABS: Alanine Aminotransfer (ALT/SGP 28 U/L (12-78); Albumin, Blood 3.9 g/dL (3.4-5.0); Albumin/Globulin Ratio 1.3 (0.8-1.8); Alk Phos 95 U/L (50-136); Anion Gap 6 mmol/L (6-16); Aspartate Aminotrans (AST/SGOT 19 U/L (12-37); Bilirubin, Total 0.4 mg/dL (0.1-1.0); Blood Urea Nitrogen 7 mg/dL (8-24); Bun/Creatinine Ratio 7.1 (12.0-20.0); CO2, Blood 24 mmol/L (21-32); Calcium, Blood 9.4 mg/dL (8.5-10.1); Chloride, Blood 107 mmol/L (98-108); Creatinine, Blood 0.98 mg/dL (0.60-1.20); Globulin, Blood 3.1 g/dL (2.2-4.0); Glomerular Filtration Rate >60 (60-); Glucose, Blood 84 mg/dL (70-99); Potassium, Blood 4.3 mmol/L (3.5-5.5); Sodium, Blood 137 mmol/L (136-145); Troponin I 0.024 ng/mL (0.000-0.040)
--- NOTE | 2019-09-06 06:29 | NUR ---
ADMIT FROM [facility] PT ARRIVED FROM [facility] [place] VIA GURNEY. BEDSIDE REPORT RECEIVED FROM [facility] RN SALAS. PT IS STABLE AT THIS TIME ALERT AND ORIENTED. ABLE TO COMMUNICATE ALL HIS NEEDS. CALL LIGHT IN REACH. PT DENIES ANY PAIN AT THIS TIME. RIGHT GROIN HAS A SHEATH IN PLACE. SITE IS SOFT AND NON-TENDER. SHEATH IS HOOKED UP TO A PREASSURE BAG. WILL BE PULLED WHEN PTT LESS THAN 40. PT IS COOPERTIVE WITH HOLDING STILL. PT HAS TWO PERIPHERAL IV'S BOTH PATENT. PT HAS NS RUNNING AT 100ML/HR. WILL CON'T TO MONITOR AND KEEP PT SAFE TILL REPORT TO ONCOMING RN.
--- NOTE | 2019-09-06 07:30 | NUR ---
REC'D REPORT FROM DAVID DENTON AND AM NOW ASSUMING CARE OF PT.
--- NOTE | 2019-09-06 10:05 | NUR ---
PT UPDATE: PT SET UP FOR A LATE FINGER FOOD TRAY. PT VERY ANXIOUS TO GET SHEATH OUT AND BE ABLE TO GET OOB TO THE TOILET. PT WAS OFFERRED A BEDPAN/URINAL FOR ELMINATION NEEDS, BUT PT DECLINED.
--- NOTE | 2019-09-06 15:49 | NUR ---
PT UPDATE: RT GROIN REMAINS STABLE AT THIS TIME. SM AMT OF DRIED BLOOD ON GAUZE PRESENT UNDER THE OCCLUSIVE DRSG. PT IS BECOMING MORE ANXIOUS THE DAY GOES ON, AND REPORTS HE IS VERY EAGER TO BE RELEASED TODAY, HE HAS NOT BEEN ABLE TO VOID LAYING DOWN, REQUIRING AN IN AND OUT CATH TO BE DONE FOR RETENTION. PT ENCOURAGED TO STAY THROUGH NIGHT, TO CONINUE TO TREND HIS TROPONINS AND WORK ON GETTING HIM OOB, TO MAKE SURE HIS GROIN SITE WILL REMAIN STABLE, HE HAD A REBLEED AFTER HIS LAST ANGIO WITH STENT PLACEMENT. PT AGREEABLE TO STAY AT THIS TIME.
--- NOTE | 2019-09-06 16:07 | NUR ---
echocardiogram complete
--- NOTE | 2019-09-06 16:24 | NUR ---
SHIFT SUMMARY: PT ALERT AND ORIENTED X3. PT IS SLIGHTLY ANXIOUS THIS AFTERNOON RE: BEING DISCHARGED HOME AND NOT BEING ABLE TO VOID WHILE LAYING SUPINE. STRAIGHT CATH DONE X1 FOR URINARY RETENTION, PT HAS HAD TO LIE SUPINE AFTER 4 HRS OF BEDREST AFTER 35 MINUTES OF MANUAL PRESSURE. DR RUTHERFORD WANTED TO KEEP PT OVER NIGHT TO CONTINUE TO TREND TROPONINS, THEY CONTINUE TO RISE AT THIS POINT. RT GROIN SITE STABLE AND AFTER 4 HOURS PT DANGLED AT THE BEDSIDE AND ABLE TO AMBULATE TO TOILET TO VOID. NS @ 100ML/HR TO BE D/C'D AFTER THIS LITER. HR REGULAR, SR 60-70'S RANGE. PT HAS DENIES CHEST PAIN T/O SHIFT. ABD SOFT/ROUND/NON-TENDER. BT'S ACTIVE X4 QUADS. NO BM THIS SHIFT. STRAIGHT CATH'D WITH 1000ML OUT, AND PT UP TO VOID PER TOILET X1.
--- NOTE | 2019-09-06 16:37 | NUR ---
DR RUTHERFORD IN AT THE BEDSIDE HE UPDATED PT WITH WHAT WAS DONE IN THE [facility] AND DISCUSSED MEDICATION COMPLIANCE AND DIFFICULTIES PT HAS HAD GETTING HIS CARDIAC MEDICATIONS WITH HIS OHP. CALLED AND LEFT MESSAGE W/YRN GARCIA FOR ASSISTANCE WITH INSURANCE DIFFICULTIES.
--- NOTE | 2019-09-06 19:00 | NUR ---
INITAL SHIFT ASSESSMENT PT IS ALERT AND LAYING IN BED. BEDSIDE REPORT RECIEVED FROM OFF GOING RN. PT STATES HE DOES HAVE SOME RESIDUAL PAIN TO HIS LEFT SHOULDER CHEST AREA. WHEN ASKED TO RATE HIS PAIN ON A SCALE HE SAYS IT IS NOTHING JUST A BOTHER MORE THAN ANYTHING. EDUCATED PT ON REPORTING ANY CHANGES IN HIS QUALITY OF PAIN. VITALS ARE STABLE AT THIS TIME. PT IS SL WITH CDI IV TO RIGHT HAND. RIGHT GROIN SITE HAS A CDI DRESSING IN PLACE AND SITE IS SOFT WITH MINIMAL BRUISING. PT DOES HAVE SOME BLOOD ON PAD UNDER DRESSING. WILL CON'T TO MONITOR AND REPORT ANY CHANGES TO RIGHT GROIN SITE. PT HAS BEEN UP TO USE URINAL NEEDED. CALL LIGHT IN REACH OF PT. VITALS ARE STABLE. WILL CON'T TO MONITOR PT AND KEEP SAFE T/O SHIFT.
--- NOTE | 2019-09-06 19:13 | NUR ---
REPORTED OFF TO DAVID DENTON AND NOW SHE IS ASSUMING CARE OF PT.
[2019-09-06 20:48] LABS: U Amphetamine Screen Not Detected; U Barbituate Screen Not Detected; U Benzodiazapine Screen Not Detected; U Buprenorphine Screen Not Detected; U Cannabinoids Screen Not Detected; U Cocaine Screen Not Detected; U Methadone Screen Not Detected; U Methamphetamine Screen Not Detected; U Opiates Screen DETECTED; U Oxycodone Screen Not Detected; U Phencyclidine Screen Not Detected; U Propoxyphene Screen Not Detected
[2019-09-07 03:34] LABS: BASOPHILS PERCENT AUTO 1 % (0-2); EOSINOPHILS ABSOLUTE AUTO 0.22 K/mm3 (0.00-0.68); EOSINOPHILS PERCENT AUTO 2 % (0-6); Hematocrit 47.6 % (37.0-53.0); Hemoglobin 15.4 g/dL (13.5-17.5); IMMATURE GRAN PERCENT AUTO 1 % (0-1); LYMPHOCYTES ABSOLUTE AUTO 3.43 K/mm3 (0.84-5.20); LYMPHOCYTES PERCENT AUTO 26 % (21-46); MONOCYTES PERCENT AUTO 8 % (4-13); Mean Corpuscular HGB 26.2 pg (26.0-34.0); Mean Corpuscular HGB Conc 32.4 g/dL (31.5-36.5); Mean Corpuscular Volume 81 fL (80-100); Mean Platelet Volume 9.8 fL (9.1-12.4); NEUTROPHILS ABSOLUTE AUTO 8.19 K/mm3 (1.96-9.15); NEUTROPHILS PERCENT AUTO 63 % (41-73); Platelet Count 225 K/mm3 (150-400); RDW Standard Deviation 45.9 fL (35.1-46.3); Red Blood Cell Count 5.88 M/mm3 (4.30-5.90); White Blood Cell Count 13.04 K/mm3 (4.00-11.30)
[2019-09-07 03:54] LABS: Alanine Aminotransfer (ALT/SGP 26 U/L (12-78); Albumin, Blood 2.9 g/dL (3.4-5.0); Alk Phos 72 U/L (50-136); Anion Gap 5 mmol/L (6-16); Aspartate Aminotrans (AST/SGOT 42 U/L (12-37); Bilirubin, Total 0.3 mg/dL (0.1-1.0); Blood Urea Nitrogen 6 mg/dL (8-24); Bun/Creatinine Ratio 6.7 (12.0-20.0); CHOL/HDL RATIO 6.5; CO2, Blood 25 mmol/L (21-32); Calcium, Blood 8.5 mg/dL (8.5-10.1); Chloride, Blood 112 mmol/L (98-108); Cholesterol 170 mg/dL (50-200); Globulin, Blood 2.8 g/dL (2.2-4.0); Glomerular Filtration Rate >60 (60-); Glucose, Blood 109 mg/dL (70-99); HDL Cholesterol 26 mg/dL (>39); LDL/HDL RATIO 3.6; Low Density Lipoprotein Chol 94 mg/dL (0-110); Potassium, Blood 3.9 mmol/L (3.5-5.5); Sodium, Blood 142 mmol/L (136-145); Total Protein, Blood 5.7 g/dL (6.4-8.2); Triglycerides 252 mg/dL (30-160); Very Low Density Lipoprot Chol 50 mg/dL (6-32)
--- NOTE | 2019-09-07 05:27 | NUR ---
SHIFT SUMMARY PT CON'T TO BE STABLE WITH NO CHANGES FROM BASELINE. PT WAS PLESANT AND COOPERTIVE WITH HIS CARE T/O SHIFT. THIS AM HE IS BECOMING ANXIOUS AND STATES HE WANTS TO GO HOME BY 9 AM. THIS RN HAS PROVIDED HIM WITH SNACKS T/O NIGHT. HE HAS BEEN UP AND WANDERING IN HIS ROOM. USING TOILET NOT URINAL. THIS RN INFORMED HIM OF THE NEED TO COLLECT HIS URINE AND HE STATES HE KEEPS FORGETTING. DENIES HAVING A BOWEL MOVEMENT OF YET. NO CHANGES TO RIGHT GROIN SITE. CON'T TO BE STABLE. VITALS ARE STABLE THIS AM. PT IS USING CALL LIGHT. WILL CON'T TO MONITOR PT AND KEEP SAFE TILL REPORT TO ONCOMING RN.
--- NOTE | 2019-09-07 08:50 | NUR ---
PT IS ALERT AND ORIENTED, DENIES ANY CHEST PAIN. REPORTS L ARM TINGLING HAS IS HIS BASELINE AND HAS BEEN ONGOING FOR 3 YEARS. PT IS ANXIOUS AND WANTS TO BE DISCHARGED. ATTEMPTED TO CONTACT MD, BUT DR IS IN PROCEDURE AT THIS TIME. UPDATED PT ON DR'S STATUS. PT IS DECLINING TO HAVING MONITORING DEVICES IN PLACE AT THIS TIME AND STATES "I'M GOING HOME TODAY". PT WAS IN SINUS RHYTHM ON THE MONITOR PRIOR TO REMOVAL OF MONITORS. PT IS AMBULATING IN ROOM INDEPENDANTLY.
[2019-09-07] MEDS ORDERED: ASPI81CH PO (09:15)
[2019-09-07] MEDS ORDERED: LISI5 PO (09:16)
[2019-09-07] MEDS ORDERED: ATOR80 PO (09:16)
[2019-09-07] MEDS ORDERED: METO25ER PO (09:17)
[2019-09-07] MEDS ORDERED: BRILINTA90 MG PO (09:18)
--- NOTE | 2019-09-07 09:59 | NUR ---
DISCHARGE INSTRUCTIONS GONE OVER WITH PT. INSTRUCTED PT ON NEW MEDICATIONS AND WHAT CASE MANAGEMENT FOUND OUT ABOUT OHP MEDICATION CONVERAGE. PT STATED UNDERSTANDING. PT AMBULATED AND ESCORTED RN TO ER ENTRANCE AND WAS PICKED UP BY [employer]. BELONGINGS GATHERED AND TRANSPORTED WITH PT.
== END 2019-09-07 09:50 | disposition home or self-care (01) | DRG 247 ==
LOC: ER 03:35 → ICUW 03:58 → ICUE 05:12
PROVIDERS: Emergency Medicine; ADMIT Internal Medicine Interventional Cardiology
PROC: 027035Z Dilation of Coronary Artery, One Artery with Two Drug-eluting Intraluminal Devices, Percutaneous Approach (ICD-10-PCS; principal; 2019-09-06)
PROC: 4A023N7 Measurement of Cardiac Sampling and Pressure, Left Heart, Percutaneous Approach (ICD-10-PCS; 2019-09-06)
PROC: B2111ZZ Fluoroscopy of Multiple Coronary Arteries using Low Osmolar Contrast (ICD-10-PCS; 2019-09-06)
PROC: B2151ZZ Fluoroscopy of Left Heart using Low Osmolar Contrast (ICD-10-PCS; 2019-09-06)
DX: I21.3 ST elevation (STEMI) myocardial infarction of unspecified site (principal); T82.855A Stenosis of coronary artery stent, initial encounter; I25.10 Atherosclerotic heart disease of native coronary artery without angina pectoris; J43.9 Emphysema, unspecified; F17.200 Nicotine dependence, unspecified, uncomplicated; I10 Essential (primary) hypertension; I25.5 Ischemic cardiomyopathy; Z86.711 Personal history of pulmonary embolism; Z85.118 Personal history of other malignant neoplasm of bronchus and lung; Z79.82 Long term (current) use of aspirin; Z79.899 Other long term (current) drug therapy; Z91.14 Patient's other noncompliance with medication regimen
CPT/HCPCS: 36415; 51701; 71045; 80047; 80053; 80061; 84484; 85014; 85025; 85347; 85730; 92978; 93005; 93010; 93306; 93458; 96374; 96375; 99152; 99153; 99285-25; A9270-GY; C1725; C1753; C1769; C1874; C1887; C1894; C9606; G0480; J1644; J2250; J2270; J2405; J3010; J7030; J7040; Q9967

== ENCOUNTER 2019-10-07 10:58 | Emergency (ER) | payer OTHER ==
[~2019-10-07] VITALS: Ht 190.5 cm; Wt 73.5 kg
[~2019-10-07 10:58] MED LIST changes: +ASPI81CH PO; +ATOR80 PO; +BRILINTA90 MG PO; +LISI5 PO; +METO25ER PO
== END 2019-10-07 11:52 | disposition home or self-care (01) ==
LOC: ER 10:58
DX: D72.829 Elevated white blood cell count, unspecified (principal); R21 Rash and other nonspecific skin eruption; I25.10 Atherosclerotic heart disease of native coronary artery without angina pectoris; I25.2 Old myocardial infarction; J43.9 Emphysema, unspecified; F17.200 Nicotine dependence, unspecified, uncomplicated; Z79.82 Long term (current) use of aspirin; Z95.5 Presence of coronary angioplasty implant and graft; Z79.899 Other long term (current) drug therapy
CPT/HCPCS: 99282

== ENCOUNTER 2022-02-03 08:17 | Inpatient (IN) | payer OTHER ==
[~2022-02-03] VITALS: Ht 190.5 cm; Wt 77.9 kg
[2022-02-03 08:45] LABS: Calcium, Ionized (POC) 1.06 mmol/L (1.10-1.46); Chloride (POC) 102 mmol/L (98-108); Glucose (ISTAT POC) 105 mg/dL (70-99); Hemoglobin (POC) 18.4 g/dL (13.5-17.5); Potassium (POC) 3.2 mmol/L (3.5-5.5); Sodium (POC) 139 mmol/L (135-148); Total CO2 (POC) 22 mmol/L (21-32)
[2022-02-03 08:48] LABS: Hematocrit 51.3 % (37.0-53.0); Hemoglobin 17.5 g/dL (13.5-17.5); Mean Corpuscular HGB 26.4 pg (26.0-34.0); Mean Corpuscular HGB Conc 34.1 g/dL (31.5-36.5); Mean Corpuscular Volume 78 fL (80-100); Mean Platelet Volume 9.4 fL (9.1-12.4); Platelet Count 270 K/mm3 (150-400); RDW Standard Deviation 42.3 fL (35.1-46.3); Red Blood Cell Count 6.62 M/mm3 (4.30-5.90); White Blood Cell Count 14.79 K/mm3 (4.00-11.30)
[2022-02-03 09:05] LABS: Albumin, Blood 3.6 g/dL (3.4-5.0); Albumin/Globulin Ratio 1.2 (0.8-1.8); Bilirubin, Total 0.5 mg/dL (0.1-1.0); Bun/Creatinine Ratio 10.1 (12.0-20.0); Calcium, Blood 8.8 mg/dL (8.5-10.1); Creatinine, Blood 0.99 mg/dL (0.60-1.20); Globulin, Blood 3.1 g/dL (2.2-4.0); Potassium, Blood 3.4 mmol/L (3.5-5.5); Total Protein, Blood 6.7 g/dL (6.4-8.2)
[2022-02-03 09:29] LABS: BASOPHILS ABSOLUTE MAN 0.14 K/mm3 (0.00-0.23); BASOPHILS PERCENT MAN 1 % (0-2); EOSINOPHILS ABSOLUTE MAN 0.44 K/mm3 (0.00-0.68); EOSINOPHILS PERCENT MAN 3 % (0-6); LYMPHOCYTES % ATYPICAL MANUAL 2 % (0-0); LYMPHOCYTES ABSOLUTE MAN 6.35 K/mm3 (0.84-5.20); LYMPHOCYTES PERCENT MAN 41 % (21-46); MONOCYTES ABSOLUTE MAN 0.44 K/mm3 (0.16-1.47); MONOCYTES PERCENT MAN 3 % (4-13); NEUTROPHILS ABSOLUTE MAN 7.39 K/mm3 (1.96-9.15); SEG NEUTROPHILS PERCENT MAN 50 % (41-73); TOTAL CELLS COUNTED 100
--- NOTE | 2022-02-03 11:08 | NUR ---
PT ADMITTED TO ICU 8 AT 1042 S/P LETTERPRESS SETTER FOR STENT PLACEMENT TO CX/OM2 2ND TO STEMI. PT AWAKE AND OX3. DENIES C/O CHEST PAIN/NAUSEA. PT HAS CHRONIC PAIN TO LEFT ARM THAT IS NOT WORSE THAN BASELINE PER PT. TR BAND TO LEFT RAD ART W 11CC AIR, PLACED AT 1031. PER DR GALLEGOS ORDERS WILL START DEFLATING CUFF AT 1330. POST EKG COMPLETED. CIRC CHECK TO LEFT HAND WNL.
[2022-02-03 11:56] LABS: LDL/HDL RATIO 5.6
[2022-02-03 12:48] LABS: CHOL/HDL RATIO 7.4; CPK Creatine Kinase 1381 U/L (39-308); Cholesterol 192 mg/dL (50-200); HDL Cholesterol 26 mg/dL (>39); Low Density Lipoprotein Chol 146 mg/dL (0-110); Triglycerides 99 mg/dL (30-160); Very Low Density Lipoprot Chol 19 mg/dL (6-32)
--- NOTE | 2022-02-03 13:33 | NUR ---
PT OOB TO USE URINAL, EDUCATED NOT TO USE LEFT ARM, AND TO CALL FOR HELP BACK INTO BED. PT FOUND BACK IN BED, TR BAND SITE CHECKED, SMALL AMT OF BLOOD LEAKED AROUND EDGE, NOT ACTIVELY BLEEDING, CIRC CHECK TO HAND WNL. DEFLATION OF BALLOON WAS TO BE STARTED AT 1330, WILL WAIT A BIT LONGER TO RECENT BLEED.
[2022-02-03 13:37] LABS: Creatine Kinase MB 78.3 ng/mL (0.0-3.6); Creatine Kinase MB Index 5.7 (0.0-4.0)
--- NOTE | 2022-02-03 15:49 | NUR ---
TR BAND AIR REMOVED FROM BALLOON OVER ONE HOUR WITHOUT REBLEED. TR BAND REMOVED ONE HOUR AFTER AIR REMOVED. CLEAR OPSITE PLACED. WRIST IMMOBILIZER ON. PT DENIES C/O CHEST PAIN/CHEST PRESSURE
--- NOTE | 2022-02-03 16:00 | NUR ---
DR ROBERTS CALLED TO GIVE AN UPDATE. LABS GIVEN, AWAITING CALL BACK.
--- NOTE | 2022-02-03 16:22 | NUR ---
PT HAD 37BEAT VT, AYSMPTOMATIC. BP STABLE. DR ROBERTS NOTIFIED. POTASSIUM ORDERED WITH REPEAT LABS IN 4HRS.
--- NOTE | 2022-02-03 18:27 | NUR ---
PT SLEEPING, AWAKENS TO VOICE, DENIES COMPLAINTS. LEFT RADIAL SITE REMAINS STABLE.
[2022-02-03 21:15] LABS: Bun/Creatinine Ratio 12.9 (12.0-20.0); Calcium, Blood 8.1 mg/dL (8.5-10.1); Creatinine, Blood 0.85 mg/dL (0.60-1.20); Potassium, Blood 4.3 mmol/L (3.5-5.5)
[2022-02-03 22:34] LABS: Creatine Kinase MB 142.2 ng/mL (0.0-3.6); Creatine Kinase MB Index 6.8 (0.0-4.0)
--- NOTE | 2022-02-03 23:11 | NUR ---
PT STATES THAT HE WANTS TO LEAVE AMA. HE STATED "GIVE ME THE PAPER ILL SIGN IT SO I CAN LEAVE AND GET SOME SLEEP BECAUSE I CANT SLEEP HERE." EXPLAINED TO PATIENT THAT PLANS ARE TO DC HIM TOMORROW AND EXPLAINED THE RISK OF HIM LEAVING AND THE PROCESS TO BE READMITTED SHOULD ANYTHING HAPPEN ONCE HE LEAVES. CALLED DR. CHANEY AND INFORMED HIM OF WHAT PATIENT SAID AND THAT PATIENT STATED THAT HE HAS TOO MANY WIRES ALL OVER HIM AND HE CANT GET COMFORTABLE. DR. MONDRAGON STATED THAT IT IS OKAY TO DISCONNCT PATIENT FROM MONITORING FOR A COUPLE HOURS. EXPLAINED TO PATIENT THE DANGER IF REMOVING MONITORING AND TOLD HIM TO CALL NURSE IF HE HAS ANY CHEST PAIN OR CHANGE IN STATUS. PT VERABLIZED UNDERSTANDING. INFORMED PT THAT RN WILL RECONNECT PATIENT TO MONITOR IN A COUPLE HOURS AND HE AGREED.
[2022-02-04 04:48] LABS: Bun/Creatinine Ratio 12.9 (12.0-20.0); Calcium, Blood 8.3 mg/dL (8.5-10.1); Creatinine, Blood 0.85 mg/dL (0.60-1.20); Potassium, Blood 4.4 mmol/L (3.5-5.5)
--- NOTE | 2022-02-04 06:08 | NUR ---
SHIFT SUMMARY: AROUND 11PM PT STATED THAT HE WANTED TO LEAVE AMA. EXPLAINED PT RISKS OF LEAVING AND TALKED TO MD. PT AGREED TO STAY AND HAS BEEN IN A BETTER MODD SINCE THEN. AM RKG IN CHART. 1L NS GIVEN. NO ACUTE EVENTS OVERNIGHT
[2022-02-04 06:11] LABS: Creatine Kinase MB 86.6 ng/mL (0.0-3.6); Creatine Kinase MB Index 5.9 (0.0-4.0)
--- NOTE | 2022-02-04 07:40 | NUR ---
ASSUMED CARE: PT SITTING UPRIGHT IN BED, AWAKE, ALERT, TALKING TO STAFF. WANTS TO GO HOME. ASKING WHEN DR WILL COME TO RELEASE HIM. NSR ON TELE. VSS AT THIS TIME. ON RA. NO ACUTE NEEDS OR CONCERNS.
--- NOTE | 2022-02-04 09:02 | NUR ---
PT HAS ASKED SEVERAL TIMES SINCE ASSUMING CARE WHAT THE PLAN IS AND WHEN HE WILL BE DISCHARGED. CALL TO DR ROBERTS TO LET HIM KNOW PT IS THREATENING TO LEAVE AMA IF HE DOES NOT GET DISCHARGED TODAY. DR ROBERTS STATED HE WAS UNSURE WHEN HE WOULD BE ABLE TO SEE PT AND TO REMIND HIM THAT HE JUST HAD A HEART ATTACK. PT TOLD THIS RN THAT HE WANTED TO KNOW WHAT HIS INSURANCE COVERAGE WOULD BE IF HE LEFT AMA BECAUSE HE DOES NOT FEEL HE NEEDS TO BE HERE ANY LONGER. GOT IN TOUCH WITH PT'S COACH CLEANER. WILL RELAY INFORMATION WHEN ABLE. DR ROBERTS AT BEDSIDE AT THIS TIME.
[2022-02-04] MEDS ORDERED: TICA90TA PO (09:57)
[2022-02-04] MEDS ORDERED: NITR.4SL SL (09:57)
--- NOTE | 2022-02-04 10:44 | NUR ---
DR ROBERTS CAME TO SEE PT AND PT WAS INSISTENT ON LEAVING TODAY DESPITE ADVISEMENT AGAINST IT. DR ROBERTS GAVE THIS RN VERBAL DISCHARGE ORDERS AND MEDICATIONS. CALL TO [facility] AND CARDIOLOGY OFFICE FOR COUPONS FOR BRILINTA AND NEITHER OFFICE HAD ANY AVAILABLE. FLANGE TURNER FOUND COUPON FOR [employer] FOR 214$. PT STATES HE WOULD BE UNABLE TO PAY FOR THAT. CALL TO DR ROBERTS TO RELAY THIS MESSAGE. MESSAGE LEFT WITH STAFF DUE TO DR BEING IN PROCEDURE. AWAITING CALL BACK FROM PCU TO SEE IF ANY COUPONS ARE AVAILABLE THERE.
--- NOTE | 2022-02-04 11:13 | NUR ---
CASE MANAGEMENT AND PCU FOUND FURTHER COUPONS. THESE WERE PROVIDED TO PT WELL DC INSTRUCTIONS. PT INSTRUCTED TO TAKE MEDICATIONS ORDERED UNTIL HE FOLLOWS UP WITH DR EVANGELISTA. PT AWARE TO COMMUNICATE WITH DRS OFFICES IF HE IS INFORMED THAT INSURANCE WILL NOT PAY FOR MEDICATIONS. IV DC'D WNL. PT AMBULATORY UPON DISCHARGE.
== END 2022-02-04 11:10 | disposition home or self-care (01) | DRG 247 ==
LOC: ER 08:17 → ICUW 09:42 → ICUE 10:45
PROVIDERS: Emergency Medicine; ADMIT Internal Medicine Cardiovascular Disease
PROC: 027034Z Dilation of Coronary Artery, One Artery with Drug-eluting Intraluminal Device, Percutaneous Approach (ICD-10-PCS; principal; 2022-02-03)
PROC: 4A023N7 Measurement of Cardiac Sampling and Pressure, Left Heart, Percutaneous Approach (ICD-10-PCS; 2022-02-03)
PROC: B2111ZZ Fluoroscopy of Multiple Coronary Arteries using Low Osmolar Contrast (ICD-10-PCS; 2022-02-03)
PROC: B2151ZZ Fluoroscopy of Left Heart using Low Osmolar Contrast (ICD-10-PCS; 2022-02-03)
DX: I21.19 ST elevation (STEMI) myocardial infarction involving other coronary artery of inferior wall (principal); I47.29 Other ventricular tachycardia; I25.10 Atherosclerotic heart disease of native coronary artery without angina pectoris; J43.9 Emphysema, unspecified; F17.210 Nicotine dependence, cigarettes, uncomplicated; I10 Essential (primary) hypertension; E78.5 Hyperlipidemia, unspecified; I25.2 Old myocardial infarction; Z98.890 Other specified postprocedural states; Z79.82 Long term (current) use of aspirin; Z79.899 Other long term (current) drug therapy
CPT/HCPCS: 36415; 71045; 76937; 80047; 80048; 80053; 80061; 82550; 82553; 83036; 84484; 85014; 85025; 85347; 86850; 86900; 86901; 92921; 93005; 93010; 93306; 93458; 96374; 96375; 99152; 99153; 99291-25; A9270; C1725; C1769; C1874; C1887; C1894; C9606; J1644; J2250; J2270; J2405; J3010; J7030; J7050; Q9967